=== PATIENT | female | born 1960 | race Caucasian/White ===

== ENCOUNTER 2018-10-06 12:13 | Day surgery (SDC) | payer OTHER ==
[~2018-10-06] VITALS: Ht 165.1 cm; Wt 71.8 kg
[~2018-10-06 12:13] MED LIST: PROPOFOL 200 MG INJ ONE
[2018-10-06 14:11] VITALS: Ht 165.1 cm; Wt 71.8 kg
[2018-10-06] MEDS ORDERED: PANT40TA4 PO (14:17)
[2018-10-06] MEDS ORDERED: CALC-133 PO (14:17)
[2018-10-06] MEDS ORDERED: ATOR10TA65 PO (14:17)
[2018-10-06] MEDS ORDERED: DILT120C77 PO (14:17)
[2018-10-06] MEDS ORDERED: CARV12.579 PO (14:17)
[2018-10-06] MEDS ORDERED: LOSA25TA12 PO (14:17)
[2018-10-06] MEDS ORDERED: ASPI-903 PO (14:17)
[2018-10-06] MEDS ORDERED: CITA20TA8 PO (14:17)
[2018-10-06 14:44] VITALS: BP 174/88; PULSE 66; RESP 20
--- NOTE | 2018-10-06 15:39 | PREAC ---
Date/Time of Note Date/Time of Note DATE: 10/06/18 TIME: 15:38 Anesthesia Eval and Record Evaluation Time Pre-Procedure Interview DATE: 10/06/18 TIME: 15:38 Age 58 Sex female NPO: 8 hrs Preoperative diagnosis DYSPEPSIA Planned procedure EGD Past Medical History Past Medical History: Includes Cardio: HTN, Dyslipidemia Pulm: Asthma GI: Obesity Surgery & Anesthesia Issues No known issue Meds Anticoagulation: No Beta Bri within 24 hr: No Reason Beta Bri not given: Pt. not on B-Bri Reported Medications Atorvastatin Calcium (Atorvastatin Calcium) 10 Mg Tablet, 10 MG PO QHS, #30 TAB 10/06/18 Carvedilol* (Carvedilol*) 12.5 Mg Tablet, 12.5 MG PO BID, #60 TAB 10/06/18 Aspirin* (Aspirin* Chew) 81 Mg Tab.chew, 81 MG PO DAILY, TAB.CHEW 10/06/18 Calcium Carbonate/Vitamin D3 (Oyster Shell Calcium +D Tablet) 1 Each Tablet, 1 EACH PO, TAB 10/06/18 Diltiazem Hcl* (Cardizem CD*) 120 Mg Cap.sr.24h, 120 MG PO DAILY, #30 CAP 10/06/18 Citalopram Hydrobromide* (Citalopram Hydrobromide*) 20 Mg Tablet, 20 MG PO DAILY , #30 TAB 10/06/18 Pantoprazole* (Pantoprazole*) 40 Mg Tablet.dr, 40 MG PO DAILY, TAB 10/06/18 Losartan Potassium* (Losartan Potassium*) 25 Mg Tablet, 25 MG PO DAILY, TAB 10/06/18 Meds reviewed: Yes Allergies Coded Allergies: No Known Allergy (Unverified , 10/06/18) Allergies Reviewed: Yes Labs/Studies Labs Reviewed: Reviewed by anesthesiologist test: N/A Pre-procedure Exam Last vitals Vital Signs Date Temp Pulse Resp B/P (MAP) Pulse Ox O2 O2 Flow FiO2 Time Delivery Rate 10/06/18 97.4 66 20 174/88 96 Room Air 14:44 (116) Airway: Adequate mouth opening, Adequate thyromental dist Mallampati: Mallampati I Teeth: Normal Lung: Normal Heart: Normal ASA Physical Status ASA physical status: 2 Emergency: None Planned Anesthetic General/MAC: MAC Planned Pain Management Parenteral pain med Pre-operative Attestations Prior to commencing anesthesia and surgery, the patient was re-evaluated, there was verification of: *The patient's identity *The results of appropriate recent lab work and preoperative vital signs *The above evaluation not changing prior to induction *Anesthetic plan, risk benefits, alternative and complications discussed with patient/family; questions answered; patient/family understands, accepts and wishes to proceed. SANJIV COPELAND Oct 06, 2018 15:39
[2018-10-06] MEDS ORDERED: PROPOFOL 40 ML ONE (15:42)
[2018-10-06] MEDS ORDERED: LIDOCAINE 2% (SDV) 5 ML INJ ONE (15:43)
--- NOTE | 2018-10-06 15:43 | HPN ---
Date/Time of Note Date/Time of Note DATE: 10/06/18 TIME: 15:43 Interval H&P Admission Note Pt. seen H&P reviewed: No system changes JUVENAL REID Oct 06, 2018 15:43
--- NOTE | 2018-10-06 15:59 | PAC ---
Date/Time of Note Date/Time of Note DATE: 10/06/18 TIME: 15:59 Post-Anesthesia Notes Post-Anesthesia Note Last documented vital signs Vital Signs Date Temp Pulse Resp B/P (MAP) Pulse Ox O2 O2 Flow FiO2 Time Delivery Rate 10/06/18 97.4 66 20 174/88 96 Room Air 15:44 (116) Activity: WNL Respiratory function: WNL Cardiovascular function: WNL Mental status: Baseline Pain reasonably controlled: Yes Hydration appropriate: Yes Nausea/Vomiting absent: Yes SANJIV COPELAND Oct 06, 2018 15:59
[2018-10-06] MEDS ORDERED: ONDANSETRON 4 MG INJ IV PRN (16:00)
[2018-10-06] MEDS ORDERED: LABETALOL HCL 20MG INJ IV PRN (16:00)
[2018-10-06] MEDS ORDERED: hydrALAzine 20 MG INJ IV PRN (16:00)
[2018-10-06] MEDS ORDERED: EPHEDrine SULFATE 50 MG/5 ML SYG IV PRN (16:00)
[2018-10-06] MEDS ORDERED: FENTAnyl 50 MCG/ML VIAL IV PRN (16:00)
--- NOTE | 2018-10-06 16:50 | NUR ---
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 Gretel, patient's ride, en route. 1645 Awake, alert and oriented X4. Passing flatus. Encouraged to continue to pass flatus. Pt ambulates with steady gait. Tolerated po fluids and saltine crackers. All dc instructions given to pt with verbalization of understanding. Awaiting for ride to arrive.
== END 2018-10-06 16:25 | disposition home or self-care (01) ==
LOC: GIL 12:13
PROVIDERS: ATTEND Internal Medicine Gastroenterology
DX: K29.50 Unspecified chronic gastritis without bleeding (principal)
CPT/HCPCS: 88305; 88312